=== PATIENT | female | born 1970 | race American Indian/Alaskan Native ===

== ENCOUNTER 2025-05-26 17:52 | Emergency (ER) | payer SELFPAY ==
[~2025-05-26] VITALS: Ht 154.9 cm; Wt 66.2 kg
--- NOTE | 2025-05-26 18:08 | ERN ---
ED Note History of Present Illness Stated Complaint: RLQ PAIN Chief Complaint: Abdominal Pain Time Seen by MD: 17:54 Time Seen by Midlevel: 17:54 Dictation: The patient is a 54-year-old female with a history of prediabetes who presents to the emergency department right lower quadrant abdominal pain associated with nausea onset 1:00 a.m. this morning. Patient otherwise denies diarrhea, fevers, constipation. Denies urinary discomfort Allergies: Coded Allergies: No Known Allergies (Unverified Allergy, Unknown, 05/26/25) Home Meds Active Scripts Tamsulosin HCl (Flomax) 0.4 Mg Cap.er.24h, 0.4 MG PO DAILY for 30 Days, #30 CAPSULE. Prov:TIM HARRISON [facility] 05/26/25 Ibuprofen (Ibuprofen) 600 Mg Tablet, 600 MG PO Q6H PRN for PAIN, #15 TAB Prov:TIM HARRISON [facility] 05/26/25 Cefpodoxime Proxetil (Cefpodoxime Proxetil) 200 Mg Tablet, 1 TAB PO BID for 10 Days, #20 TAB 0 Refills Prov:TIM HARRISON [facility] 05/26/25 Past Medical History Past Medical History: Diabetes-Type II Surgical History: None RN Note Reviewed/Agreed w/PFSH: Yes Review of System Dictation Constitutional: Negative for fever,chills, and weight loss Eyes: Negative for injury, pain,redness, and discharge ENT: Negative for injury,pain or swelling Cardiovascular: Negative for chest pain, palpitations, and edema Respiratory: Negative for shortness of breath, cough, and wheezing, Abdomen/GI: Negative for vomiting, diarrhea, and constipation positive for abdominal pain, nausea, Back: Negative for injury and pain : Negative for injury, bleeding and discharge MS/Extremity: Negative for injury and deformity Skin: Negative for rash, and discoloration Neuro: Negative for headache, weakness, numbness, tingling, and seizure Psych: Negative for suicide ideation, homicidal ideation, and hallucinations Initial Vital Sign VS Vital Signs Date Time Temp Pulse Resp B/P (MAP) Pulse Ox O2 Delivery O2 Flow Rate FiO2 05/26/25 17:54 98.4 54 16 153/67 97 Room Air 0 05/26/25 19:19 21 Physical Exam Dictation Vital Signs reviewed General Appearance: Alert, oriented x 3, no acute distress, well developed, nourished. Head and Face: non-traumatic. Eyes: PERRL, pink conjunctivas, eyelid no trauma, anterior chamber with arcus senilis. Ears: Pinnas intact and no signs of trauma or erythema ear canals clear and no discharge TM no erythema Nose: No discharge, no bleeding. Oropharynx: Mouth normal, tongue pink. pharynx clear,no erythema, tonsils no exudates, no abscesses noted, mucous membrane moist Neck: Supple, non-tender, no thyromegaly, no masses, no JVD, no bruits Breast:Deferred Chest:No tenderness, no crepitus, no paradoxical movement, no retractions Lungs:Clear, well-ventilated, symmetric, no rales, no wheezing, no rhonchi, no stridor, good breath sounds bilaterally Heart: Regular rate, regular rhythm, no murmur, no gallops Vascular: no peripheral edema, Abdomen: Soft, positive bowel sounds, nondistended, no guarding, Right lower quadrant tenderness, no rebound, no masses no hepatomegaly, no splenomegaly, no Kellogg's sign, no hernias. Rectal: Deferred Genital: Deferred Neurological: Normal speech, motor function intact, sensory function intact Musculoskeletal: Neck nontender, full range of motion, back nontender, full range of motion, Extremities: nontender, full range of motion Skin: Color pink, dry, no turgor, no rash, no lacerations, no abrasions, no contusions. Lymphatic: Deferred Results (Laboratory/Radiology) Laboratory/Radiology Laboratory Tests Test 05/26/25 18:20 05/26/25 19:23 White Blood Count 9.4 K/uL (4.8-10.8) Red Blood Count 4.30 MIL/uL (4.00-5.50) Hemoglobin 13.1 g/dL (12.0-16.0) Hematocrit 39.0 % (36-48) Mean Corpuscular Volume 90.7 fL (79-99) Mean Corpuscular Hemoglobin 30.5 pg (27.0-33.0) Mean Corpuscular Hemoglobin Concent 33.6 g/dL (32.0-36.0) Red Cell Distribution Width 13.8 % (11.0-15.5) Platelet Count 181 K/uL (130-400) Mean Platelet Volume 11.5 fL (7.5-10.5) H Immature Granulocyte % (Auto) 0.3 % (0-1) Neutrophils (%) (Auto) 84.1 % (40.0-77.0) H Lymphocytes (%) (Auto) 11.6 % (21.0-51.0) L Monocytes (%) (Auto) 3.2 % (3.0-13.0) Eosinophils (%) (Auto) 0.5 % (0.0-8.0) Basophils (%) (Auto) 0.3 % (0.0-5.0) Neutrophils # (Auto) 7.9 K/uL (1.8-7.7) H Lymphocytes # (Auto) 1.1 K/uL (1.0-4.8) Monocytes # (Auto) 0.3 K/uL (0.1-1.0) Eosinophils # (Auto) 0.05 K/uL (0.00-0.70) Basophils # (Auto) 0.03 K/uL (0.00-0.20) Absolute Immature Granulocyte (auto 0.03 K/uL (0-1) Nucleated Red Blood Cells 0.0 % (0.0-0.19) Sodium Level 141 mmol/L (136-145) Potassium Level 3.5 mmol/L (3.5-5.1) Chloride Level 104 mmol/L (101-111) Carbon Dioxide Level 28 mmol/L (21-32) Blood Urea Nitrogen 14 mg/dL (7-18) Creatinine 0.7 mg/dL (0.5-1.0) Glomerular Filtration Rate Calc 102 mL/min (>90) Random Glucose 128 mg/dL (70-105) H Total Calcium 8.8 mg/dL (8.5-10.1) Total Bilirubin 0.5 mg/dL (0.2-1.0) Aspartate Amino Transf (AST/SGOT) 27 U/L (10-37) Alanine Aminotransferase (ALT/SGPT) 36 U/L (12-78) Alkaline Phosphatase 146 U/L (50-136) H Total Creatine Kinase 98 U/L (21-232) Troponin I High Sensitivity 5 ng/L (4-50) Total Protein 7.7 g/dL (6.0-8.3) Albumin 4.2 g/dL (3.5-5.0) Lipase 26 U/L (16-77) Urine Color LIGHT-YELLOW (YELLOW) Urine Appearance CLOUDY (CLEAR) H Urine pH 6.0 (5.0-8.0) Urine Specific Bentley 1.020 (1.001-1.031) Urine Protein NEGATIVE mg/dL (NEGATIVE) Urine Glucose (UA) NEGATIVE mg/dL (NEGATIVE) Urine Ketones 20 mg/dL (NEGATIVE) H Urine Occult Blood MODERATE (NEGATIVE) H Urine Nitrate NEGATIVE (NEGATIVE) Urine Bilirubin NEGATIVE mg/dL (NEGATIVE) Urine Urobilinogen 0.2 mg/dL (0.2-1.0) Urine Leukocyte Esterase 250 Inna/uL (NEGATIVE) H Urine RBC 26-50 /HPF (0-1) H Urine WBC 11-25 /HPF (0-1) H Urine Squamous Epithelial Cells MOD /HPF (0-2) Urine Bacteria None /HPF (None Seen) REASON: Abdominal Pain rlq ORDERING PHYSICIAN: TIM HARRISON [employer] PROCEDURE: ABD PEL W - CT ABDOMEN/PELVIS W/CONTRAST EXAM: CT Abdomen and Pelvis with IV contrast CLINICAL HISTORY: Patient presents with right lower quadrant abdominal pain. TECHNIQUE: Axial computed tomography images of the abdomen and pelvis with intravenous contrast. CONTRAST: Administered intravenously. COMPARISON: None provided. FINDINGS: LUNG BASES: The lung bases are clear. No pleural effusions. LIVER: Unremarkable. GALLBLADDER AND BILE DUCTS: The gallbladder is within normal limits. No radioopaque gallstones. No biliary ductal dilatation. PANCREAS: Unremarkable. SPLEEN: Unremarkable. ADRENAL GLANDS: Unremarkable. KIDNEYS, URETERS, AND BLADDER: There is a 0.4 cm calculus along the right vesicoureteric junction, suboptimally evaluated due to a non-distended urinary bladder, with associated mild right hydroureteronephrosis. A 0.3 cm non-obstructive calculus is seen in the lower calyx of the right kidney. Minimal perinephric fat stranding and perinephric free fluid along the right kidney, findings concerning for acute pyelonephritis. The urinary bladder is incompletely distended, limiting evaluation for wall thickening. In the appropriate clinical setting, mild cystitis cannot be excluded. STOMACH AND BOWEL: Unremarkable appearance of the stomach and bowel. No evidence of bowel obstruction, enteritis, or colitis. APPENDIX: No CT evidence of acute appendicitis. PERITONEUM: No free intraperitoneal air. Minimal right perinephric free fluid as described above. LYMPH NODES: No lymphadenopathy. REPRODUCTIVE: Unremarkable as visualized. VASCULATURE: No abdominal aortic aneurysm. BONES: No acute or aggressive osseous lesion. IMPRESSION: Right vesicoureteric junction calculus measuring 0.4 cm with associated mild right hydroureteronephrosis. Right renal lower calyceal non-obstructive calculus measuring 0.3 cm. Minimal right perinephric fat stranding and perinephric free fluid concerning for acute pyelonephritis. The urinary bladder is incompletely distended, limiting evaluation for wall thickening. In the appropriate clinical setting, mild cystitis cannot be excluded. /[facility] Labs Reviewed?: Yes EKG: (+) rhythm (Sinus rhythm) EKG Comment: Date:05/26/2025 Time:1806 Ventricular rate:64 WI interval:160 QRS duration:100 QT/QTc:459/475 EKG interpretation: Sinus rhythm Reviewed by ED Attending no STEMI ED Course ED Course Orders Procedure Category Date Status Time Cbc With Differential LAB 05/26/25 Complete 18:01 Comprehensive LAB 05/26/25 Complete Metabolic Panel 18:01 Troponin I High LAB 05/26/25 Complete Sensitivity 18:01 Urinalysis Profile LAB 05/26/25 Complete 18:01 Ct Abdomen/Pelvis CT 05/26/25 Resulted W/Contrast 18:01 12 Lead Ekg Tracing- EKG 05/26/25 Logged Technical 18:01 0.9%Nacl 1000ml (Ns PHA 05/26/25 Complete 1000ml) 18:30 Morphine 4mg Syg PHA 05/26/25 Complete (Morphine 4mg Syg) 18:30 Ondansetron 4mg Inj PHA 05/26/25 Complete (Zofran 4mg Inj) 18:30 Creatine Kinase, Total LAB 05/26/25 Complete 18:01 Lipase LAB 05/26/25 Complete 18:01 Iohexol (Omnipaque) PHA 05/26/25 Complete 19:29 Culture Urine BRUCE 05/26/25 In Process 19:37 Ceftriaxone 1g Vial PHA 05/26/25 Complete (Rocephine 1g Inj) 20:30 Ketorolac PHA 05/26/25 Complete Tromethamine 30mg/Ml 20:30 Current Medications Medications (Trade) Dose Ordered Sig/Vilma Route PRN Reason Start Time Stop Time Status Last Admin Dose Admin Ceftriaxone Sodium (ROCEphine 1G INJ) 1 gm ONCE ONCE IVPB 05/26/25 20:30 05/26/25 20:31 DC 05/26/25 21:15 Iohexol (Omnipaque) 75 ml STK-MED ONCE IV 05/26/25 19:29 05/26/25 19:29 DC Ketorolac Tromethamine (toRADol) 30 mg ONCE ONCE IVP 05/26/25 20:30 05/26/25 20:31 DC 05/26/25 21:15 Morphine Sulfate (morPHINE 4MG SYG) 4 mg ONCE ONCE IVP 05/26/25 18:30 05/26/25 18:31 DC 05/26/25 19:35 Ondansetron HCl (zoFRAN 4MG INJ) 4 mg ONCE ONCE IVP 05/26/25 18:30 05/26/25 18:31 DC 05/26/25 19:35 Sodium Chloride 1,000 ml @ 0 mls/hr ONCE ONCE IV 05/26/25 18:30 05/26/25 18:31 DC 05/26/25 19:35 Vital Signs Date Time Temp Pulse Resp B/P (MAP) Pulse Ox O2 Delivery O2 Flow Rate FiO2 05/26/25 21:30 98.4 60 16 147/63 97 Room Air* 0 21 05/26/25 19:19 98.4 54 16 153/67 97 Room Air* 0 21 05/26/25 17:54 98.4 54 16 153/67 97 Room Air 0 Medical Decision Making MDM The patient is a 54-year-old female with a history of prediabetes who presents to the emergency department right lower quadrant abdominal pain associated with nausea onset 1:00 a.m. this morning. Patient otherwise denies diarrhea, fevers, constipation. Denies urinary discomfort CBC showed no leukocytosis, no anemia, chemistry showed no electrolyte imbalance, negative troponin, negative lipase, urinalysis positive for leukocyte esterase. CT abdomen showed some 0.4 cm calculus along the right vesicoureteric junction , mild right hydroureteronephrosis. Minimal perinephric fat stranded concerning for acute pyelonephritis. Patient was treated with iv pain medication, fluids and antibiotics. Patient reports no longer having any pain. On physical exam patient is in no acute distress, non toxic appearance, stable vital signs. We will discharge to follow up with urologist and given antibiotics. Patient agree with discharge planing. Differential diagnosis: Appendicitis, kidney stone, gastroenteritis Need for hospitalization: Patient does not meet criteria for hospitalization. There are no social concerns with this patient. DX & DISP Disposition: Discharge Departure Impression: Primary Impression: Kidney stone on right side Additional Impression: Pyelonephritis Condition: Stable Scripts Tamsulosin HCl (Flomax) 0.4 Mg Cap.er.24h 0.4 MG PO DAILY for 30 Days, #30 CAPSULE.DR Prov: TIM HARRISON 05/26/25 Ibuprofen (Ibuprofen) 600 Mg Tablet 600 MG PO Q6H PRN for PAIN, #15 TAB Prov: CHRISTYTIM HAMILTON 05/26/25 Cefpodoxime Proxetil (Cefpodoxime Proxetil) 200 Mg Tablet 1 TAB PO BID for 10 Days, #20 TAB 0 Refills Prov: CHRISTYTIM HAMILTON 05/26/25 Additional Instructions: Your labs were unremarkable. Your CT scan showed a kidney stone. You will need t o follow up with urologist. Take your antibiotics as prescribe. If symptoms worsen please return to ER. FOLLOW-UP WITH PRIMARY CARE PROVIDER IN 1 TO 2 DAYS. TAKE MEDICATIONS DIRECTED HERE IN THE EMERGENCY ROOM. OKAY TO CONTINUE HOME MEDICATIONS UNLESS OTHERWISE DISCUSSED DURING YOUR VISIT IN THE EMERGENCY ROOM TODAY. RETURN TO YOUR NEAREST EMERGENCY ROOM IF SYMPTOMS WORSEN OR IF THERE IS NO IMPROVEMENT. CALL 911 IF YOU NEED IMMEDIATE ASSISTANCE. TAKE TYLENOL [id number] NEEDED AND IF NO CONTRAINDICATIONS ARE PRESENT. INCREASE ORAL HYDRATION. A WOUND CULTURE OR URINE CULTURE WAS ORDERED HERE IN THE EMERGENCY ROOM DEPARTMENT PLEASE FOLLOW-UP WITH PRIMARY CARE PROVIDER AND ADVISE THEM TO GET REPEAT PORTS FROM OUR FACILITY. IF YOU HAD ANY DENICE WRAP/SPLINTS THAT WERE APPLIED HERE, PLEASE DO NOT REMOVE THEM UNTIL YOU SEE YOUR PRIMARY CARE OR SPECIALTY. Referrals: JOSE M GAINES MD Time of Disposition: 22:08 I have reviewed the case, and I agree with, Diagnosis and Plan I performed a substantive portion of the visit. I have reviewed and personally made and approve the management plan that is documented in the notes by myself with DEJUAN/resident. I acknowledged full responsibility for the patient's managem ent plan. TIM HARRISON May 26, 2025 18:08 MARY FONTANEZ DO May 27, 2025 01:03
[2025-05-26 18:30] LABS: IMMATURE GRANULOCYTE ABSOLUTE 0.03 K/uL (0-1); NUCLEATED RED BLOOD CELLS 0.0 % (0.0-0.19); PLATELET COUNT (AUTO) 181 K/uL (130-400); RED BLOOD CELL COUNT(AUTO) 4.30 MIL/uL (4.00-5.50); RED CELL DISTRIBUTION WIDTH 13.8 % (11.0-15.5); WHITE BLOOD COUNT (AUTO) 9.4 K/uL (4.8-10.8)
[2025-05-26 18:44] LABS: CREATININE 0.7 mg/dL (0.5-1.0); GLOMERULAR FILTR. RATE CALC 102.0 mL/min (>90); GLUCOSE,RANDOM 128.0 mg/dL (70-105); SODIUM SERUM 141.0 mmol/L (136-145); UREA NITROGEN, BLOOD 14.0 mg/dL (7-18)
[2025-05-26 18:57] LABS: ASPARTATE AMINOTRANSFERASE 27.0 U/L (10-37); CREATINE KINASE, TOTAL 98.0 U/L (21-232); TOTAL PROTEIN, SERUM 7.7 g/dL (6.0-8.3)
[2025-05-26] MEDS ORDERED: IOHEXOL-350 75 ML VIAL IV ONE (19:29)
[2025-05-26 19:35] LABS: APPEARANCE,URINE CLOUDY (CLEAR); GLUCOSE, URINE (UA) NEGATIVE (NEGATIVE); LEUKOCYTE ESTERASE ,URINE 250 Leu/uL (NEGATIVE); NITRATE,URINE NEGATIVE (NEGATIVE); OCCULT BLOOD,URINE MODERATE (NEGATIVE)
[2025-05-26] MEDS: 0.9%NACL 1000ML 1,000 ML IV ONE (19:35)
[2025-05-26 19:37] LABS: ADD UA MICROSCOPIC YES
[2025-05-26 19:39] LABS: SQUAMOUS EPITHELIAL CELL,UR MOD /HPF (0-2)
[2025-05-26 21:30] VITALS: BP 147/63; PULSE 60; RESP 16; TEMP 98.4; O2SAT 97
--- NOTE | 2025-05-26 21:41 | HMCIMG ---
EXAM: CT Abdomen and Pelvis with IV contrast CLINICAL HISTORY: Patient presents with right lower quadrant abdominal pain. TECHNIQUE: Axial computed tomography images of the abdomen and pelvis with intravenous contrast. CONTRAST: Administered intravenously. COMPARISON: None provided. FINDINGS: LUNG BASES: The lung bases are clear. No pleural effusions. LIVER: Unremarkable. GALLBLADDER AND BILE DUCTS: The gallbladder is within normal limits. No radioopaque gallstones. No biliary ductal dilatation. PANCREAS: Unremarkable. SPLEEN: Unremarkable. ADRENAL GLANDS: Unremarkable. KIDNEYS, URETERS, AND BLADDER: There is a 0.4 cm calculus along the right vesicoureteric junction, suboptimally evaluated due to a non-distended urinary bladder, with associated mild right hydroureteronephrosis. A 0.3 cm non-obstructive calculus is seen in the lower calyx of the right kidney. Minimal perinephric fat stranding and perinephric free fluid along the right kidney, findings concerning for acute pyelonephritis. The urinary bladder is incompletely distended, limiting evaluation for wall thickening. In the appropriate clinical setting, mild cystitis cannot be excluded. STOMACH AND BOWEL: Unremarkable appearance of the stomach and bowel. No evidence of bowel obstruction, enteritis, or colitis. APPENDIX: No CT evidence of acute appendicitis. PERITONEUM: No free intraperitoneal air. Minimal right perinephric free fluid as described above. LYMPH NODES: No lymphadenopathy. REPRODUCTIVE: Unremarkable as visualized. VASCULATURE: No abdominal aortic aneurysm. BONES: No acute or aggressive osseous lesion. IMPRESSION: Right vesicoureteric junction calculus measuring 0.4 cm with associated mild right hydroureteronephrosis. Right renal lower calyceal non-obstructive calculus measuring 0.3 cm. Minimal right perinephric fat stranding and perinephric free fluid concerning for acute pyelonephritis. The urinary bladder is incompletely distended, limiting evaluation for wall thickening. In the appropriate clinical setting, mild cystitis cannot be excluded. /[place]
[2025-05-26] MEDS ORDERED: TAMS-55 PO (22:08)
[2025-05-26] MEDS ORDERED: IBUP-1492 PO (22:08)
[2025-05-26] MEDS ORDERED: CEFP200T14 PO (22:08)
--- NOTE | 2025-05-27 04:37 | EKG ---
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
== END 2025-05-26 22:16 | disposition home or self-care (01) ==
LOC: EDH 17:52
DX: N13.2 Hydronephrosis with renal and ureteral calculous obstruction (principal); N12 Tubulo-interstitial nephritis, not specified as acute or chronic; E11.9 Type 2 diabetes mellitus without complications
CPT/HCPCS: 99285; 74177; 96374; 96375; 82550; 84484; 80053; 83690; 85025; 87086; 81001; 36415; 93005; J1885; J7030; J0696; J2405; J2270; Q9967